=== PATIENT | female | born 1955 | race Caucasian/White ===

== ENCOUNTER → 2021-01-07 | Outpatient (CLI) | payer BC, MEDICARE ==
[2021-01-07 15:13] LABS: Basophils # (A) 0.07 X 10*3/uL (0.00-0.10); Basophils % (A) 0.7 %; Eosinophils # (A) 0.32 X 10*3/uL (0.04-0.35); HCT 39.2 % (37.2-46.3); HGB 11.3 g/dL (12.0-15.0); Lymphocytes # (A) 1.73 X 10*3/uL (0.90-5.00); Lymphocytes % (A) 16.4 %; MCH 23.7 pg (27.0-32.0); MCHC 28.8 g/dL (32.0-37.0); MCV 82.4 fL (80.0-97.0); Mean Platelet Volume 12.8 fL (9.5-12.2); Monocytes % (A) 8.5 %; Neutrophils # (A) 7.41 X 10*3/uL (1.80-7.70); Neutrophils % (A) 70.4 %; Platelet Count 350 X 10*3/uL (140-440); RBC 4.76 X 10*6/uL (4.10-5.20); RDW 16.6 % (11.5-14.5); WBC 10.54 X 10*3/uL (4.50-10.00)
[2021-01-07 16:51] LABS: African American GFR (CKD) 60.6 (60.0-200.0); Albumin 4.5 g/dL (3.80-4.90); Albumin/Globulin Ratio 1.88 (1.60-3.17); Anion Gap 12.3 mmol/L (4.00-12.00); Calcium 9.4 mg/dL (8.7-10.3); Carbon Dioxide 28.7 mmol/L (21.6-31.8); Chol/HDL Ratio 2.61; Globulin 2.4 g/dL (1.6-3.3); LDL Cholesterol,Calculated 50.2 mg/dL (0.0-131.0); Non-African American GFR(CKD) 52.3 (60.0-200.0); Potassium 4.1 mmol/L (3.5-5.5); Total Bilirubin 0.2 mg/dL (0.3-1.2); Total Protein 6.9 g/dL (6.2-8.2); VLDL Calculation 28.8 mg/dL (5.00-40.00)
[2021-01-07 18:33] LABS: Hemoglobin A1C 7.7 % (4.0-6.0)
== END | disposition home or self-care (01) ==
LOC: LABWHC1 08:50
PROVIDERS: ATTEND Family Medicine
DX: I10 Essential (primary) hypertension (principal); K21.9 Gastro-esophageal reflux disease without esophagitis; M19.90 Unspecified osteoarthritis, unspecified site; E11.9 Type 2 diabetes mellitus without complications; F41.9 Anxiety disorder, unspecified; F32.9 Major depressive disorder, single episode, unspecified
CPT/HCPCS: 36415; 80053; 80061; 83036; 84443; 85025

== ENCOUNTER 2024-05-20 09:39 | Inpatient (IN) | payer BC, MEDICARE ==
[2024-05-20] MEDS: ASPIRIN 81 MG PO STA (10:03)
[2024-05-20] MEDS: NITROGLYCERIN SL TABS 0.4 MG TAB SUBLINGUAL STA (10:03)
--- NOTE | 2024-05-20 10:03 | ED ---
General Adult HPI - General Chief complaint: Chest Pain Stated complaint: chest pain Time Seen by Provider: 05/20/24 09:39 Source: patient, RN notes reviewed, old records reviewed Mode of arrival: ambulatory Limitations: no limitations - History of Present Illness Initial comments: This is a 68-year-old female with a past medical history significant for diabetes hypertension high cholesterol. Patient also has a strong family history of heart disease. Patient states this morning she woke up at about 830 this morning started having chest pain it did not radiate anywhere but it was very achy in her chest and it persists even now. Patient denies shortness of breath or any diaphoretic episode. Patient [place] any nausea. Patient denies any recent fever chills or cough. Patient has any recent exercise or heavy lifting. Patient has any abdominal pain patient denies any vomiting or diarrhea. - Related Data Allergies Allergy/AdvReac Type Severity Reaction Status Date / Time No Known Allergies Allergy Verified 05/20/24 09:46 Review of Systems ROS Statement: Those systems with pertinent positive or pertinent negative responses have been documented in the HPI. ROS Other: All systems not noted in ROS Statement are negative. Past Medical History Past Medical History: Diabetes Mellitus, Hypertension History of Any Multi-Drug Resistant Organisms: None Reported Past Surgical History: Orthopedic Surgery Past Psychological History: No Psychological Hx Reported Smoking Status: Never smoker Past Alcohol Use History: None Reported Past Drug Use History: None Reported General Exam - General Exam Comments Initial Comments: GENERAL: Patient is well-developed and well-nourished. Patient is nontoxic and well- hydrated and is in mild distress. ENT: Neck is soft and supple. No significant lymphadenopathy is noted. Oropharynx is clear. Moist mucous membranes. Neck has full range of motion without eliciting any pain. EYES: The sclera were anicteric and conjunctiva were pink and moist. Extraocular movements were intact and pupils were equal round and reactive to light. Eyelids were unremarkable. PULMONARY: Unlabored respirations. Good breath sounds bilaterally. No audible rales rhonchi or wheezing was noted. CARDIOVASCULAR: There is a regular rate and rhythm without any murmurs gallops or rubs. ABDOMEN: Soft and nontender with normal bowel sounds. SKIN: Skin is clear with no lesions or rashes and otherwise unremarkable. NEUROLOGIC: Patient is alert and oriented x3. Cranial nerves II through XII are grossly intact. Motor and sensory are also intact. Normal speech, volume and content. Symmetrical smile. MUSCULOSKELETAL: Normal extremities with adequate strength and full range of motion. No lower extremity swelling or edema. No calf tenderness. LYMPHATICS: No significant lymphadenopathy is noted PSYCHIATRIC: Normal psychiatric evaluation. Limitations: no limitations Course Vital Signs 05/20/24 09:42 Temperature 97.5 F L Pulse Rate 81 Respiratory 20 Rate Blood Pressure 159/78 O2 Sat by Pulse 99 Oximetry Medical Decision Making - Medical Decision Making EKG is interpreted by myself. EKG shows sinus rhythm at 81 bpm parables 210 QRS is 94 QT interval 364 QTc is 402. Patient's EKG does show some ST segment elevation in V2 V3 and V4 but borderline for STEMI criteria Second EKG was done it was interpreted by myself. Second EKG shows sinus rhythm at 89 bpm parables 208 QRS is 97 QT interval 346 QTc is 392. Patient's EKG shows significant ST segment elevation in V4 V5 V6. I sent the EKG immediately to Dr. Waddell the assistant golf professional he came down and saw the patient and agreed that we should call us a STEMI overhead so was called overhead at this time. Was pt. sent in by a medical professional or institution (, PA, TECHNOLOGY DIRECTOR, urgent care, hospital, or long term...) When possible be specific @ -No Did you speak to anyone other than the patient for history (EMS, parent, family, police, friend...)? What history was obtained from this source @ -No Did you review nursing and triage notes (agree or disagree)? Why? @ -I reviewed and agree with nursing and triage notes Were old charts reviewed (outside hosp., previous admission, EMS record, old EKG, old radiological studies, urgent care reports/EKG's, long term records)? Report findings @ -No old charts were reviewed Differential Diagnosis? @ -Differential Chest Pain: Stable Angina, Unstable Angina, STEMI, NSTEMI Aortic Dissection, Pneumothorax, Musculoskeletal, Esophageal Spasm GERD, Cholecystitis, Pancreatitis, Zoster, this is not meant to be an all-inclusive list. EKG interpreted by me (3pts min.). @ -As above X-rays interpreted by me (1pt min.). @ -Chest x-ray shows no acute normality CT interpreted by me (1pt min.). @ -None done U/S interpreted by me (1pt. min.). @ -None done What testing was considered but not performed or refused? (CT, X-rays, U/S, labs)? Why? @ -None What meds were considered but not given or refused? Why? @ -None Did you discuss the management of the patient with other professionals (professionals i.e. , PA, TECHNOLOGY DIRECTOR, lab, RT, psych nurse, social staff worker, acquisitions editor, teacher, legal compliance officer, case reviewer)? Give summary @ -I spoke with Dr. Waddell about this patient he came down and saw the patient was called a STEMI overhead and patient will be going to the [facility] Was smoking cessation discussed for >3mins.? @ -No Was critical care preformed (if so, how long)? @ -35 minutes Were there social determinants of health that impacted care today? How? (Homelessness, low income, unemployed, alcoholism, drug addiction, transportation, low edu. Level, literacy, decrease access to med. care, skilled nursing, rehab)? @ -No Was there de-escalation of care discussed even if they declined (Discuss DNR or withdrawal of care, Hospice)? DNR status @ -No What co-morbidities impacted this encounter? (DM, HTN, Smoking, COPD, CAD, Cancer, CVA, ARF, Chemo, Hep., AIDS, mental health diagnosis, sleep apnea, morbid obesity)? @ -None Was patient admitted / discharged? Hospital course, mention meds given and route, prescriptions, significant lab abnormalities, going to OR and other pertinent info. @ -Patient received aspirin nitroglycerin heparin Ativan and Lipitor in the emergency department Undiagnosed new problem with uncertain prognosis? @ -No Drug Therapy requiring intensive monitoring for toxicity (Heparin, Nitro, Insulin, Cardizem)? @ -No Were any procedures done? @ -No Diagnosis/symptom? @ -STEMI Acute, or Chronic, or Acute on Chronic? @ -Acute Uncomplicated (without systemic symptoms) or Complicated (systemic symptoms)? @ -Complicated Side effects of treatment? @ -No Exacerbation, Progression, or Severe Exacerbation? @ -No Poses a threat to life or bodily function? How? (Chest pain, [place], [place], pneumonia, PE, COPD, DKA, ARF, appy, cholecystitis, CVA, Diverticulitis, Homicidal, Perri cidal, threat to staff... and all critical care pts) @ -This can lead to poor cardiac output and endorgan dysfunction Disposition Clinical Impression: ST elevation myocardial infarction (STEMI) Disposition: ADMITTED IP TO THIS HOSP Referrals: None,Stated [Primary Care Provider] - 1-2 days Time of Disposition: 10:29
[2024-05-20] MEDS: LORazepam 2 MG/ML INJ IV STA (10:22)
[2024-05-20] MEDS: ATORVASTATIN 80 MG TAB PO STA (10:22)
[2024-05-20] MEDS: HEPARIN SODIUM 1,000 UN/ML (10ML VL) IV ONE ×2 (10:22→10:58)
[2024-05-20 10:29] LABS: Basophils # (A) 0.1 k/uL (0-0.2); Basophils % (A) 0 %; Eosinophils # (A) 0.5 k/uL (0-0.7); Eosinophils % (A) 3 %; HCT 39.2 % (34.0-46.0); Hypochromasia Marked; Lymphocytes # (A) 1.2 k/uL (1.0-4.8); Lymphocytes % (A) 7 %; MCH 26.7 pg (25.0-35.0); MCHC 30.6 g/dL (31.0-37.0); MCV 87.1 fL (80.0-100.0); Mean Platelet Volume 9.9; Monocytes # (A) 0.9 k/uL (0-1.0); Monocytes % (A) 5 %; Neutrophils # (A) 15.2 k/uL (1.3-7.7); Neutrophils % (A) 85 %; Platelet Count 275 k/uL (150-450); RDW 14.8 % (11.5-15.5); WBC 17.9 k/uL (3.8-10.6)
[2024-05-20 10:39] LABS: ALT 7 U/L (4-34); African American GFR (CKD) 18 (>60 ml/min/1.73 sqM); Albumin 4.3 g/dL (3.5-5.0); Anion Gap 10 mmol/L; Blood Urea Nitrogen 52 mg/dL (7-17); Calcium 9.4 mg/dL (8.4-10.2); Carbon Dioxide 20 mmol/L (22-30); Chloride 110 mmol/L (98-107); Glucose 160 mg/dL (74-99); Non-African American GFR(CKD) 16 (>60 ml/min/1.73 sqM); Sodium 140 mmol/L (137-145); Total Bilirubin 0.8 mg/dL (0.2-1.3)
[2024-05-20 10:41] LABS: AST 24 U/L (14-36); Alkaline Phosphatase 37 U/L (38-126); Magnesium 1.9 mg/dL (1.6-2.3); Potassium 5.6 mmol/L (3.5-5.1); Total Protein 7.6 g/dL (6.3-8.2)
[2024-05-20] MEDS: IV FLUID CONTINUATION 1,000 ML IV ONE (10:41)
--- NOTE | 2024-05-20 10:44 | P.CRDCN ---
History of Present Illness Consult date: 05/20/24 History of present illness: HISTORY OF PRESENTING ILLNESS 68-year-old morbidly obese, hypertension, type 2 diabetes, diet controlled, dyslipidemia, presents to the hospital because of substernal chest pain that started at 8:30 AM this morning. Patient was apparently well until last night. Patient reports her chest pain to be substernal, heaviness pressure-like sensa tion along with radiation to the left arm. Cardiology was paged for this at 10 AM. Patient was evaluated immediately. Admission ECG showed subtle ST elevations in anterolateral leads. Repeat ECG sh owed progression of these ST changes. Patient denies any prior history of strokes, bleeding diathesis. Verbal consent was obtained from the patient and the family. Procedural steps of cardiac danielle terization, indication, and potential complications were explained to the patient. I explained to her potential risk of stroke, AR, vascular injury, to the patient. Patient would like to proceed with heart catheterization procedure understanding these potential complications. Urinary REVIEW OF SYSTEMS 14 point review of system is negative except what is mentioned above in HPI. PHYSICAL EXAMINATION Vital signs reviewed. Head: Normocephalic. Eyes: Sclerae nonicteric. Neck: Brisk carotid upstroke, no jugular venous distention. Lungs: Clear to auscultation. Heart: Regular rate and rhythm, S1-S2, no S3, no murmur or rub. Abdomen: Soft nontender, positive bowel sounds. Extremities: No edema, intact distal pulses. Neuro: Alert, oritented, no focal deficits. Detailed neuro exam was not performed. ASSESSMENT Lateral STEMI Substernal chest pain with left arm radiation Type 2 diabetes Hypertension Dyslipidemia Morbid obesity PLAN Patient received aspirin, 4000's of IV heparin, sublingual nitroglycerin which helped her symptoms. Plan for emergent cardiac catheterization Further recommendations to follow Fran Waddell MD, FACC, RPVI Thank you for allowing [facility] to participate in this patient's care. Feel free to reach out in case of any followup questions. Past Medical History Past Medical History: Diabetes Mellitus, Hypertension History of Any Multi-Drug Resistant Organisms: None Reported Past Surgical History: Orthopedic Surgery Past Psychological History: No Psychological Hx Reported Smoking Status: Never smoker Past Alcohol Use History: None Reported Past Drug Use History: None Reported Medications and Allergies Allergies Allergy/AdvReac Type Severity Reaction Status Date / Time No Known Allergies Allergy Verified 05/20/24 09:46 Physical Exam Vitals: Vital Signs Temp Pulse Resp BP Pulse Ox 05/20/24 09:42 97.5 F L 81 20 159/78 99 Intake and Output 05/19/24 05/20/24 05/20/24 22:59 06:59 14:59 Other: Weight 113.398 kg Results 05/20/24 10:04 Cardiac Enzymes 05/20/24 Range/Units 10:04 AST 24 (14-36) U/L Comprehensive Metabolic Panel 05/20/24 Range/Units 10:04 Sodium 140 (137-145) mmol/L Potassium 5.6 H (3.5-5.1) mmol/L Chloride 110 H (98-107) mmol/L Carbon Dioxide 20 L (22-30) mmol/L BUN 52 H (7-17) mg/dL Creatinine 2.95 H (0.52-1.04) mg/dL Glucose 160 H (74-99) mg/dL Calcium 9.4 (8.4-10.2) mg/dL AST 24 (14-36) U/L ALT 7 (4-34) U/L Alkaline Phosphatase 37 L (38-126) U/L Total Protein 7.6 (6.3-8.2) g/dL Albumin 4.3 (3.5-5.0) g/dL Intake and Output 05/19/24 05/20/24 05/20/24 22:59 06:59 14:59 Other: Weight 113.398 kg Patient Weight 05/21/24 06:59 Weight 113.398 kg 05/20/24 10:04
[2024-05-20] MEDS ORDERED: HEPARIN SODIUM 1,000 UN/ML (10ML VL) ONE (10:54)
[2024-05-20] MEDS ORDERED: fentaNYL (PF) 50 MCG/ML 2 ML AMP ONE (10:54)
[2024-05-20] MEDS ORDERED: LIDOCAINE 1% INJ 10MG/ML (20 ML MDV) ONE (10:54)
[2024-05-20] MEDS ORDERED: VERAPAMIL 2.5 MG/ML 2 ML AMP ONE (10:54)
[2024-05-20] MEDS: MIDAZOLAM 2 MG/2 ML VIAL IVP ONE (10:58)
[2024-05-20] MEDS: LIDOCAINE 1% INJ 10MG/ML (20 ML MDV) SQ ONE (10:58)
[2024-05-20] MEDS: fentaNYL (PF) 50 MCG/1 ML VIAL IVP ONE (10:58)
[2024-05-20] MEDS: VERAPAMIL SYRINGE (5 MG/10 ML) INTRAARTER ONE (11:00)
[2024-05-20] MEDS ORDERED: TICAGRELOR 90 MG TAB ONE (11:07)
[2024-05-20] MEDS: TICAGRELOR 90 MG TAB PO ONE (11:09)
[2024-05-20] MEDS: NITROGLYCERIN 1000MCG/10ML SYRINGE INTRACORON ONE (11:24)
[2024-05-20] MEDS: IOPAMIDOL-370 200ML BTL INTRATHECA ONE (11:39)
[2024-05-20] MEDS ORDERED: MAG HYDROX/AL HYDROX/SIMETH 30 ML CUP PO PRN (11:53)
[2024-05-20] MEDS ORDERED: RX INFO: IV CONTRAST WAS GIVEN 1 EACH MISC MISCELLANE PRN (11:53)
[2024-05-20] MEDS ORDERED: ATROPINE SULFATE 0.1 MG/ML 10ML SYRINGE IV PRN (11:53)
--- NOTE | 2024-05-20 11:53 | P.PRCINT ---
Percutaneous Coronary Int. - Percutaneous Coronary Intervention Percutaneous Coronary Intervention: PROCEDURES PERFORMED: Left heart catheterization, bilateral coronary angiography, ultrasound guided arterial access, intravascular ultrasound LAD, penumbra aspiration thrombectomy LAD, PCI mid to distal LAD 2.25 x 12 mm Xience PRESTON INDICATION: STEMI CONSENT:I have discussed the risks, benefits and alternative therapies for the above-mentioned procedure and for both sedation/analgesia as well as necessary blood product administration, if indicated, as they pertain to this patient. The patient has indicated understanding and acceptance of the risks and procedures discussed. PROCEDURE: After the risks, benefits and alternatives of the above mentioned procedure explained in detail with the patient, informed consent was obtained. Patient was taken to the catheterization lab and prepped and draped in usual fas hion. Ultrasound guidance was used to assess for arterial access. 1% lidocaine was used to anesthetize the right radial artery. A 6-[place] sheath was placed in the right radial artery using modified Seldinger technique and ultrasound guidance. Left coronary angiography was performed with a 5-[place] JL 3.5 catheter and right coronary angiography was performed with a 5-[place] FR4 catheter in various views. A 5-[place] FR4 catheter was inserted into the left ventricle and pressure measurements were obtained. the decision was made to perform PCI of the mid to distal LAD. A 6-[place] CLS 3.5 guide was used to engage the left main. A 0.014 BMW wire was unable to easily pass and therefore is 0.014 was for wire was used to advance the distal LAD. Predilation was performed with 2.5 mm balloon. There is still no antegrade flow and therefore penumbra aspiration thrombectomy was performed with removal of thrombus. A 2.25 x 12 mm Xience PRESTON was placed in the mid to distal LAD. Given contrast threshold, limited images were taken however intravascular ultrasound was repeated with well-expanded stent and no dissection. Final angiograms were performed. Preintervention there was 100% stenosis and CHICA 0 flow and post intervention there was less than 10% stenosis with CHICA 3 flow. The right radial sheath was removed and a TR band was placed with hemostasis achieved. The patient tolerated the procedure well. Patient was transported back to the post catheterization holding area in stable condition. Conscious Sedation: Patient was monitored under the direct supervision of myself for conscious sedation using Versed and fentanyl for a total duration of 34 minutes HEMODYNAMICS: Aorta: 144/72 LV: 141/5, LVEDP 11 SELECTIVE CORONARY ARTERIOGRAPHY: LEFT MAIN: The left main is a large caliber vessel which bifurcates into the LAD and circumflex. There is no significant stenosis. LEFT ANTERIOR DESCENDING CORONARY ARTERY: LAD is a large caliber vessel which wraps around to the apex. There is mild 10-20% proximal and mid LAD stenosis with a more focal 100% mid to distal LAD stenosis. LEFT CIRCUMFLEX CORONARY ARTERY: Left circumflex is a moderate caliber vessel with mild luminal irregularities. RIGHT CORONARY ARTERY: The right coronary artery is a large caliber vessel which gives off a PDA and PLV branch and is the dominant vessel. There are mild luminal irregularity. FINAL IMPRESSION: 1. CAD as described above including mild luminal irregularities and mid to distal LAD 100% stenosis. 2. S/p PCI mid to distal LAD 2.25 x 12 mm Xience PRESTON 3. Normal left sided filling pressures PLAN: 1. Aggressive risk factor modification per most recent ACC/AHA guidelines. 2. Continue dual antiplatelets with aspirin and Brillinta for 12 months 3. Goal LDL < 70
[2024-05-20 11:58] LABS: Basophils % (A) 0 %; Eosinophils # (A) 0.2 k/uL (0-0.7); Eosinophils % (A) 1 %; HCT 34.6 % (34.0-46.0); HGB 10.5 gm/dL (11.4-16.0); Hypochromasia Marked; Lymphocytes # (A) 0.9 k/uL (1.0-4.8); Lymphocytes % (A) 5 %; MCH 26.5 pg (25.0-35.0); MCHC 30.2 g/dL (31.0-37.0); MCV 87.6 fL (80.0-100.0); Monocytes # (A) 1.1 k/uL (0-1.0); Monocytes % (A) 6 %; Neutrophils # (A) 17.3 k/uL (1.3-7.7); Neutrophils % (A) 88 %; Platelet Count 280 k/uL (150-450); RBC 3.96 m/uL (3.80-5.40); RDW 14.7 % (11.5-15.5); WBC 19.6 k/uL (3.8-10.6)
[2024-05-20 12:07] LABS: ALT 8 U/L (4-34); AST 42 U/L (14-36); African American GFR (CKD) 19 (>60 ml/min/1.73 sqM); Albumin 3.7 g/dL (3.5-5.0); Alkaline Phosphatase 59 U/L (38-126); Anion Gap 11 mmol/L; Blood Urea Nitrogen 49 mg/dL (7-17); Calcium 8.7 mg/dL (8.4-10.2); Carbon Dioxide 18 mmol/L (22-30); Chloride 112 mmol/L (98-107); Glucose 155 mg/dL (74-99); Non-African American GFR(CKD) 16 (>60 ml/min/1.73 sqM); Potassium 4.1 mmol/L (3.5-5.1); Sodium 141 mmol/L (137-145); Total Bilirubin 0.3 mg/dL (0.2-1.3); Total Protein 6.6 g/dL (6.3-8.2)
--- NOTE | 2024-05-20 12:16 | XR ---
EXAM: XR chest 1V portable CLINICAL INDICATION:Female, 68 years old with history of Chest Pain; [facility] COMPARISON: None. TECHNIQUE: Chest single view. FINDINGS: Some limitation in evaluation of the lung apices due to the patient's head down. Exam overall limited by body habitus. Lines/tubes/devices: EKG leads overlie the chest. No indwelling lines are seen. Cardiomediastinum: Cardiac silhouette appears mildly enlarged. Extra density suggested over the heart may suggest modera te sized hiatal hernia. Unremarkable mediastinal silhouette. Vasculature: No increased pulmonary vasculature. Lungs/pleura: Mild chronic senescent changes in the lungs. Vague opacity present at the left lung base may represen t eventration of the diaphragm with mild basilar atelectasis. Small amount pleural fluid possible. Ri ght costophrenic angle is sharp. No visualized pneumothorax. Bones/soft tissues: Bony thorax appears grossly intact as seen. Regional soft tissues appear unremarkable. IMPRESSION: 1. Mild cardiomegaly without evidence of decompensated CHF. 2. Suspect moderate sized hiatal hernia. 3. Vague opacity present at the left lung base may represent eventration of the diaphragm with mild basilar atelectasis. Small amount of pleural fluid not ruled out.
[2024-05-20 12:25] LABS: INR 1.1 (<1.2); Prothrombin Time 11.4 sec (10.0-12.5)
[2024-05-20 12:34] LABS: Partial Thromboplastin Time >200.0 sec (22.0-30.0)
[2024-05-20] MEDS: SODIUM CHLORIDE 0.9% 1,000 ML in EMPTY BAG 1 BAG IV SCH (12:55)
[2024-05-20] MEDS: SODIUM CHLORIDE 0.9% 1,000 ML IV SCH (14:15)
--- NOTE | 2024-05-20 15:57 | P.HPIM ---
History of Present Illness H&P Date: 05/20/24 History of present illness: 68-year-old female with history of diabetes mellitus, hypertension, hyper lipidemia, morbid obesity who presented to ER with complaint of substernal chest pain that started around 830 today. Patient stated that she went to sleep and she was feeling at her baseline without any issues. Patient reported the chest pain was substernal, felt like heaviness, radiating to left arm. Patient denied any fever, chills, shortness of breath, sore throat, nausea vomiting diarrhea c onstipation abdominal pain dysuria urgency frequency weakness or numbness of extremities. In the ED patient was afebrile, heart rate 81, respiratory rate 20, blood pressure 159/78, saturating 99% on room air. WBC 17.9, hemoglobin 12, platelets 280, INR was 1.1. BMP showed sodium 140, potassium 5.6, chloride 110, CO2 20, creatinine 2.95, BUN 52, troponin was elevated 0.078. Patient EKG showed subtle ST elevation in lateral leads, cardiology was consulted at 10 AM, repeat EKG showed progression of ST changes. Patient was taken to [facility] for emergent catheterization. REVIEW OF SYSTEMS: CONSTITUTIONAL: No fever, no malaise, no fatigue. HEENT: No recent visual problems or hearing problems. Denied any sore throat. CARDIOVASCULAR: No chest pain, orthopnea, PND, no palpitations, no syncope. PULMONARY: No shortness of breath, no cough, no hemoptysis. GASTROINTESTINAL: No diarrhea, no nausea, no vomiting, no abdominal pain. NEUROLOGICAL: No headaches, no weakness, no numbness. HEMATOLOGICAL: Denies any bleeding or petechiae. GENITOURINARY: Denies any burning micturition, frequency, or urgency. MUSCULOSKELETAL/RHEUMATOLOGICAL: Denies any joint pain, swelling, or any muscle pain. ENDOCRINE: Denies any polyuria or polydipsia. The rest of the 14-point review of systems is negative. PHYSICAL EXAMINATION: GENERAL: A&O x3, NAD HEENT: EOMI, Sclerae anicteric, Moist Mucous membranes Neck: Supple, Non tender, No JVD PULMONARY: Equal breath souds B/L, No wheezing, No crackles. CARDIOVASCULAR: S1, S2 present. No murmurs, rubs, or gallops. ABDOMEN: Soft, nontender, nondistended, normoactive bowel sounds. No guarding or rebound tenderness. MUSCULOSKELETAL: No edema, No cyanosis. No clubbing. Normal ROM. Intact peripheral pulses. EXTREMITIES: No cyanosis, clubbing, or pedal edema. Skin: Warm. No Rash Assessment and plan: STEMI: Hypertension: Hyperlipidemia: Presented with chest pain, Elevated troponin and EKG showed ST elevation. Patient taken for emergent cardiac catheterization underwent stent of distal LAD. Continue dual antiplatelet aspirin and Brilinta. Statin, beta-iliana IV fluids Monitor renal function Echocardiogram Cardiology on board and following Elevated creatinine: Suspect CKD: Unknown baseline, last creatinine in 2020 was 1.1. Avoid nephrotoxin Monitor renal function IV fluids Nephrology consult. Bilateral foot cellulitis: Leukocytosis: Patient reported recurrent foot infection, reported inadequate treatment. Start doxycycline and Keflex. Infectious disease consult. Diabetes mellitus: Accu-Cheks, diabetic diet Sliding scale insulin Check HbA1c Morbid obesity: DVT prophylaxis: Subcutaneous heparin Monitor vital signs and labs Continue telemetry monitoring Labs and medication were reviewed. Continue same treatment. Resume home medication. Further recommendations as per clinical course of the patient Dictation was produced using [employer] dictation software. please excuse any grammatical, word or spelling errors. Past Medical History Past Medical History: Diabetes Mellitus, Hypertension History of Any Multi-Drug Resistant Organisms: None Reported Past Surgical History: Orthopedic Surgery Past Psychological History: No Psychological Hx Reported Smoking Status: Never smoker Past Alcohol Use History: None Reported Past Drug Use History: None Reported Medications and Allergies Home Medications Medication Instructions Recorded Confirmed Type Atorvastatin [Lipitor] 20 mg PO HS 05/20/24 05/20/24 History Pantoprazole Sodium [Protonix] 20 mg PO DAILY 05/20/24 05/20/24 History lisinopriL [Zestril] 10 mg PO DAILY 05/20/24 05/20/24 History Allergies Allergy/AdvReac Type Severity Reaction Status Date / Time No Known Allergies Allergy Verified 05/20/24 12:15 Physical Exam Vitals: Vital Signs Temp Pulse Resp BP Pulse Ox 05/20/24 15:00 74 27 H 138/54 97 05/20/24 14:30 70 23 98 05/20/24 14:15 73 18 143/90 100 05/20/24 14:00 81 23 161/74 98 05/20/24 13:45 79 14 151/71 98 05/20/24 13:30 74 13 156/103 05/20/24 13:15 81 15 138/75 98 05/20/24 13:00 71 19 142/71 97 05/20/24 12:45 70 17 121/67 97 05/20/24 12:30 70 16 162/83 94 L 05/20/24 12:15 81 23 149/77 95 05/20/24 12:01 97.7 F 86 12 96 05/20/24 11:15 158/86 05/20/24 10:45 92 20 158/86 05/20/24 10:15 84 31 H 149/58 05/20/24 10:02 78 20 156/67 97 05/20/24 09:42 97.5 F L 81 20 159/78 99 Intake and Output 05/20/24 05/20/24 05/20/24 06:59 14:59 22:59 Intake Total 1750 125 Output Total 0 0 Balance 1750 125 Intake: IV 1750 125 Sodium Chloride 0.9% 1, 250 125 000 ml @ 125 mls/hr IV . Q8H ESTELA Rx#:[id number] Sodium Chloride 0.9% 1, 1000 000 ml In Empty Bag 1 bag @ 3 ML/KG/HR 340.194 mls /hr IV .Q2H57M ESTELA Rx#: [id number] Output: Urine 0 0 Other: # Voids 0 0 Weight 113.398 kg Results CBC & Chem 7: 05/20/24 11:35 05/20/24 11:35 Labs: Abnormal Lab Results - Last 24 Hours (Table) 05/20/24 05/20/24 05/20/24 Range/Units 10:04 10:04 10:04 WBC 17.9 H (3.8-10.6) k/uL Hgb (11.4-16.0) gm/dL MCHC 30.6 L (31.0-37.0) g/dL Neutrophils # 15.2 H (1.3-7.7) k/uL Lymphocytes # (1.0-4.8) k/uL Monocytes # (0-1.0) k/uL APTT (22.0-30.0) sec Potassium 5.6 H (3.5-5.1) mmol/L Chloride 110 H (98-107) mmol/L Carbon Dioxide 20 L (22-30) mmol/L BUN 52 H (7-17) mg/dL Creatinine 2.95 H (0.52-1.04) mg/dL Glucose 160 H (74-99) mg/dL AST (14-36) U/L Alkaline Phosphatase 37 L (38-126) U/L Troponin I 0.078 H* (0.000-0.034) ng/mL 05/20/24 05/20/24 05/20/24 Range/Units 11:35 11:35 11:35 WBC 19.6 H (3.8-10.6) k/uL Hgb 10.5 L (11.4-16.0) gm/dL MCHC 30.2 L (31.0-37.0) g/dL Neutrophils # 17.3 H (1.3-7.7) k/uL Lymphocytes # 0.9 L (1.0-4.8) k/uL Monocytes # 1.1 H (0-1.0) k/uL APTT >200.0 H* (22.0-30.0) sec Potassium (3.5-5.1) mmol/L Chloride 112 H (98-107) mmol/L Carbon Dioxide 18 L (22-30) mmol/L BUN 49 H (7-17) mg/dL Creatinine 2.85 H (0.52-1.04) mg/dL Glucose 155 H (74-99) mg/dL AST 42 H (14-36) U/L Alkaline Phosphatase (38-126) U/L Troponin I (0.000-0.034) ng/mL
[2024-05-20] MEDS ORDERED: DEXTROSE 50% SYRINGE 50 ML IVP PRN ×2 (16:24)
[2024-05-20 17:02] LABS: Glucose,Whole Blood 124 mg/dL (70-110)
[2024-05-20] MEDS: INSULIN ASPART (NovoLOG) 100 UNIT/ML VIAL SQ SCH (17:02)
[2024-05-20] MEDS: CEPHALEXIN 500 MG CAP PO SCH (17:51)
[2024-05-20] MEDS: DOXYCYCLINE 100 MG CAP PO SCH (17:51)
--- NOTE | 2024-05-20 18:14 | XR ---
EXAMINATION TYPE: XR chest 1V portable DATE OF EXAM: 05/20/2024 6:07 PM CLINICAL INDICATION:Female, 68 years old with history of SOB; COMPARISON: Chest radiographs from 05/20/2024 TECHNIQUE: XR chest 1V portable Frontal view of the chest. FINDINGS: Lungs/Pleura: There is no evidence of pleural effusion, focal consolidation, or pneumothorax. Pulmonary vascularity: Unremarkable. Heart/mediastinum: Cardiomediastinal silhouette is enlarged and stable. Atherosclerotic calcificatio ns are seen in the aorta. Musculoskeletal: No acute osseous pathology. Other findings: None IMPRESSION: Low lung volumes with a generalized hazy appearance which could represent atelectasis versus pulmonar y edema correlate with serum BNP.
[2024-05-20 19:57] LABS: Glucose,Whole Blood 144 mg/dL (70-110)
[2024-05-20] MEDS: HEPARIN SODIUM,PORCINE 5,000 UNIT/ML 1 ML VIAL SQ SCH (20:37)
[2024-05-20] MEDS: METOPROLOL TARTRATE 12.5 MG TAB PO SCH (20:38)
[2024-05-20] MEDS: ZOLPIDEM 5 MG TAB PO PRN (20:38)
[2024-05-20] MEDS: ATORVASTATIN 80 MG TAB PO SCH (20:39)
[2024-05-20] MEDS: TICAGRELOR 90 MG TAB PO SCH (20:40)
[2024-05-20] MEDS ORDERED: ATORVASTATIN 40 MG TAB PO SCH (21:00)
[2024-05-20] MEDS: IPRATROPIUM-ALBUTEROL 3 ML NEB INHALATION SCH (21:24)
[2024-05-20] MEDS ORDERED: LORazepam 1 MG TAB PO PRN (23:59)
[2024-05-21] MEDS ORDERED: IPRATROPIUM-ALBUTEROL 3 ML NEB ONE ×2 (00:01→19:46)
[2024-05-21] MEDS ORDERED: DOXYCYCLINE 100 MG CAP ONE (00:01)
[2024-05-21] MEDS: HYDROcodone/APAP 5-325MG 1 EACH TAB PO PRN (00:08)
[2024-05-21 04:39] VITALS: RESP 16
[2024-05-21 04:40] VITALS: TEMP 99.1
[2024-05-21 06:36] LABS: Glucose,Whole Blood 136 mg/dL (70-110)
[2024-05-21 07:08] VITALS: BP 146/74; PULSE 60
[2024-05-21 07:18] LABS: African American GFR (CKD) 20 (>60 ml/min/1.73 sqM); Anion Gap 7 mmol/L; Blood Urea Nitrogen 43 mg/dL (7-17); Calcium 9.6 mg/dL (8.4-10.2); Carbon Dioxide 23 mmol/L (22-30); Chloride 110 mmol/L (98-107); Glucose 140 mg/dL (74-99); Non-African American GFR(CKD) 17 (>60 ml/min/1.73 sqM); Sodium 140 mmol/L (137-145)
[2024-05-21] MEDS ORDERED: ASPIRIN 81 MG ONE (08:02)
[2024-05-21] MEDS ORDERED: HEPARIN SODIUM,PORCINE 5,000 UNIT/ML 1 ML VIAL ONE ×2 (08:02→20:31)
[2024-05-21] MEDS ORDERED: METOPROLOL TARTRATE 12.5 MG TAB ONE ×2 (08:03→20:31)
[2024-05-21] MEDS ORDERED: TICAGRELOR 90 MG TAB ONE ×2 (08:03→20:32)
[2024-05-21] MEDS ORDERED: ASPIRIN 81 MG PO SCH (09:00)
[2024-05-21] MEDS ORDERED: CEPHALEXIN 500 MG CAP PO SCH (09:00)
[2024-05-21 11:19] LABS: Glucose,Whole Blood 145 mg/dL (70-110)
[2024-05-21 11:30] LABS: Basophils % (A) 0 %; Eosinophils # (A) 0.2 k/uL (0-0.7); Eosinophils % (A) 2 %; HCT 35.2 % (34.0-46.0); HGB 10.7 gm/dL (11.4-16.0); Hypochromasia Marked; Lymphocytes # (A) 0.8 k/uL (1.0-4.8); Lymphocytes % (A) 6 %; MCH 26.8 pg (25.0-35.0); MCHC 30.4 g/dL (31.0-37.0); MCV 87.9 fL (80.0-100.0); Mean Platelet Volume 10.1; Monocytes # (A) 0.7 k/uL (0-1.0); Monocytes % (A) 5 %; Neutrophils # (A) 11.8 k/uL (1.3-7.7); Platelet Count 278 k/uL (150-450); RBC 4.01 m/uL (3.80-5.40); RDW 14.6 % (11.5-15.5); WBC 13.6 k/uL (3.8-10.6)
[2024-05-21 16:07] LABS: Glucose,Whole Blood 136 mg/dL (70-110)
[2024-05-21] MEDS ORDERED: ATORVASTATIN 80 MG TAB ONE (20:31)
[2024-05-21 20:45] LABS: Glucose,Whole Blood 113 mg/dL (70-110)
[2024-05-22] MEDS ORDERED: NYSTAT-TRIAMCIN 100,000-0.1 UNIT/GM-% OINT 30 GM TUBE TOPICAL ONE (00:01)
[2024-05-22] MEDS ORDERED: SODIUM CHLORIDE 0.9% 50 ML BAG ONE (00:01)
[2024-05-22] MEDS ORDERED: ceFAZolin 1,000 MG VIAL ONE (00:01)
[2024-05-22] MEDS ORDERED: IPRATROPIUM-ALBUTEROL 3 ML NEB ONE ×2 (07:52→20:00)
[2024-05-22] MEDS ORDERED: HEPARIN SODIUM,PORCINE 5,000 UNIT/ML 1 ML VIAL ONE (08:28)
[2024-05-22] MEDS ORDERED: ASPIRIN 81 MG ONE (08:28)
[2024-05-22] MEDS ORDERED: TICAGRELOR 90 MG TAB ONE ×2 (08:29→21:32)
[2024-05-22] MEDS ORDERED: METOPROLOL TARTRATE 25 MG TAB ONE ×4 (08:29→21:36)
[2024-05-22] MEDS ORDERED: APIXABAN 2.5 MG TABLET ONE ×2 (08:30→21:36)
[2024-05-22] MEDS ORDERED: AMIODARONE 200 MG TAB ONE ×2 (08:31→21:36)
[2024-05-22 11:44] LABS: Glucose,Whole Blood 111 mg/dL (70-110)
[2024-05-22 16:40] LABS: Glucose,Whole Blood 125 mg/dL (70-110)
[2024-05-22] MEDS ORDERED: HYDROcodone/APAP 5-325MG 1 EACH TAB ONE (17:09)
[2024-05-22 20:40] LABS: Glucose,Whole Blood 134 mg/dL (70-110)
[2024-05-22] MEDS ORDERED: ATORVASTATIN 80 MG TAB ONE (21:32)
[2024-05-22] MEDS ORDERED: LORazepam 1 MG TAB ONE (21:32)
[2024-05-22] MEDS ORDERED: ZOLPIDEM 5 MG TAB ONE (22:42)
[2024-05-23] MEDS ORDERED: INSULIN ASPART (NovoLOG) 100 UNIT/ML VIAL SQ ONE ×2 (00:01→16:56)
[2024-05-23] MEDS ORDERED: IPRATROPIUM-ALBUTEROL 3 ML NEB ONE (00:01)
[2024-05-23 06:04] LABS: Glucose,Whole Blood 145 mg/dL (70-110)
[2024-05-23] MEDS ORDERED: AMIODARONE 200 MG TAB ONE ×2 (08:02→23:23)
[2024-05-23] MEDS ORDERED: ASPIRIN 81 MG ONE (08:03)
[2024-05-23] MEDS ORDERED: TICAGRELOR 90 MG TAB ONE ×2 (08:03→23:24)
[2024-05-23] MEDS ORDERED: APIXABAN 2.5 MG TABLET ONE ×2 (08:03→23:27)
[2024-05-23] MEDS ORDERED: METOPROLOL TARTRATE 25 MG TAB ONE ×4 (08:03→23:25)
[2024-05-23] MEDS ORDERED: SODIUM CHLORIDE 0.9% 50 ML BAG ONE (08:44)
[2024-05-23] MEDS ORDERED: ceFAZolin 1,000 MG VIAL ONE (08:44)
[2024-05-23] MEDS ORDERED: NYSTAT-TRIAMCIN 100,000-0.1 UNIT/GM-% OINT 30 GM TUBE TOPICAL ONE (08:44)
[2024-05-23 11:47] LABS: Glucose,Whole Blood 99 mg/dL (70-110)
[2024-05-23 16:41] LABS: Glucose,Whole Blood 158 mg/dL (70-110)
[2024-05-23 20:26] LABS: Glucose,Whole Blood 137 mg/dL (70-110)
[2024-05-23] MEDS ORDERED: LORazepam 1 MG TAB ONE (23:24)
[2024-05-23] MEDS ORDERED: ATORVASTATIN 80 MG TAB ONE (23:24)
[2024-05-24] MEDS ORDERED: IPRATROPIUM-ALBUTEROL 3 ML NEB ONE ×2 (00:01→07:53)
[2024-05-24 06:09] LABS: Glucose,Whole Blood 141 mg/dL (70-110)
[2024-05-24] MEDS ORDERED: CEPHALEXIN 500 MG CAP ONE (09:01)
[2024-05-24] MEDS ORDERED: AMIODARONE 200 MG TAB ONE (09:01)
[2024-05-24] MEDS ORDERED: ASPIRIN 81 MG ONE (09:01)
[2024-05-24] MEDS ORDERED: METOPROLOL TARTRATE 12.5 MG TAB ONE (09:01)
[2024-05-24] MEDS ORDERED: HEPARIN SODIUM,PORCINE 5,000 UNIT/ML 1 ML VIAL ONE (09:02)
[2024-05-24] MEDS ORDERED: APIXABAN 2.5 MG TABLET ONE (09:02)
[2024-05-24 11:26] LABS: Glucose,Whole Blood 123 mg/dL (70-110)
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
== END 2024-05-24 15:48 | disposition home or self-care (01) | DRG 322 ==
LOC: EC 09:39 → 2SICU 10:30
PROVIDERS: ADMIT Hospitalist; ATTEND Hospitalist
PROC: B240ZZ3 Ultrasonography of Single Coronary Artery, Intravascular (ICD-10-PCS; 2024-05-20)
PROC: 027034Z Dilation of Coronary Artery, One Artery with Drug-eluting Intraluminal Device, Percutaneous Approach (ICD-10-PCS; principal; 2024-05-20 10:38)
PROC: 02C03ZZ Extirpation of Matter from Coronary Artery, One Artery, Percutaneous Approach (ICD-10-PCS; 2024-05-20 10:38)
PROC: 4A023N7 Measurement of Cardiac Sampling and Pressure, Left Heart, Percutaneous Approach (ICD-10-PCS; 2024-05-20 10:38)
PROC: B2111ZZ Fluoroscopy of Multiple Coronary Arteries using Low Osmolar Contrast (ICD-10-PCS; 2024-05-20 10:38)
DX: I25.119 Atherosclerotic heart disease of native coronary artery with unspecified angina pectoris (principal); L03.115 Cellulitis of right lower limb; L03.116 Cellulitis of left lower limb; Z68.42 Body mass index [BMI] 45.0-49.9, adult; E78.00 Pure hypercholesterolemia, unspecified; I10 Essential (primary) hypertension; E11.9 Type 2 diabetes mellitus without complications; E66.01 Morbid (severe) obesity due to excess calories; Z79.899 Other long term (current) drug therapy; Z82.49 Family history of ischemic heart disease and other diseases of the circulatory system
CPT/HCPCS: 36415; 71045; 76770; 80048; 80051; 80053; 80061; 81003; 82565; 83036; 83735; 84484; 84520; 85025; 85610; 85730; 92973; 92978; 93005; 93306; 93458; 94640; 94760; 96374; 96375; 99291

== ENCOUNTER 2024-05-25 16:11 | Emergency (ER) | payer BC, MEDICARE ==
--- NOTE | 2024-06-22 11:10 | XR ---
EXAMINATION TYPE: XR chest 2V DATE OF EXAM: 05/25/2024 COMPARISON: Chest radiographs from 05/20/2024 TECHNIQUE: XR chest 2V Frontal and lateral views of the chest. CLINICAL INDICATION:Female, 69 years old with history of HEART ATTACK AND STENT PLACEMENT DAYS AGO; FINDINGS: Lungs/Pleura: There is no evidence of pleural effusion, focal consolidation, or pneumothorax. Low zeferino ng volumes. Pulmonary vascularity: Pulmonary vascular congestion. Heart/mediastinum: Cardiomediastinal silhouette is enlarged and stable. Musculoskeletal: No acute osseous pathology. IMPRESSION: Similar low lung volumes with a generalized hazy appearance which could represent atelectasis versus pulmonary edema correlate with serum BNP.
== END 2024-05-25 17:00 | disposition left against medical advice (07) ==
LOC: EC 16:11
CPT/HCPCS: 71046; 93005; 99285